=== PATIENT | male | born 1960 | race Native Hawaiian/Other Pacific Islander ===

== ENCOUNTER 2020-07-02 20:53 | Emergency (ER) | payer OTHER ==
[~2020-07-02] VITALS: Ht 167.6 cm; Wt 76.2 kg
[2020-07-02 20:53] VITALS: BP 167/73; TEMP 98.6
[~2020-07-02 20:53] MED LIST: HALO5INJ3 IM
[2020-07-02 21:42] LABS: PLATELET COUNT 197 K/uL (142-355)
[2020-07-02 21:50] LABS: POTASSIUM 4.4 mmol/L (3.6-5.2)
[2020-07-02] MEDS ORDERED: WELLBUTRIN100 M1 PO (22:26)
[2020-07-02] MEDS ORDERED: WELLBUTRIN150 MG PO (22:27)
[2020-07-02] MEDS ORDERED: CETI10TA PO (22:29)
[2020-07-02] MEDS ORDERED: PANTOPRAZOLE EC PO (22:35)
[2020-07-02] MEDS ORDERED: PAROXETINE30 MG PO (22:36)
[2020-07-02] MEDS ORDERED: TAMS0.4C PO (22:37)
[2020-07-02] MEDS ORDERED: METO-837 PO (22:40)
[2020-07-02] MEDS ORDERED: DIVALPROEX PO (22:48)
[2020-07-02] MEDS ORDERED: WELCHOL625 MG PO (22:51)
[2020-07-02] MEDS ORDERED: TRAZ50TA36 PO (22:52)
[2020-07-02] MEDS ORDERED: LIPITOR40 MG PO (22:54)
[2020-07-02] MEDS ORDERED: ZIPR20CA PO (23:09)
[2020-07-02] MEDS ORDERED: NITR0.4S2 SL (23:12)
[2020-07-02] MEDS ORDERED: LORA0.5T17 IM (23:16)
== END 2020-07-02 21:54 | disposition other institution (70) ==
LOC: ED 20:53
PROVIDERS: Family Medicine
DX: U07.1 COVID-19 (principal); R46.89 Other symptoms and signs involving appearance and behavior; F22 Delusional disorders; Z04.6 Encounter for general psychiatric examination, requested by authority
CPT/HCPCS: 36415; 80053; 85027; 87635; 93005; 96372; 99283; J3486; U0003